=== PATIENT | male | born 1960 | race Caucasian/White ===

== ENCOUNTER → 2017-01-04 | Day surgery (SDC) | payer BC ==
[2016-12-24 13:32] VITALS: Ht 172.7 cm; Wt 68.2 kg
[~2017-01-04] VITALS: Ht 172.7 cm; Wt 68.2 kg
[~2017-01-04] MED LIST: ATROPINE SULFATE 0.1 MG/ML 5ML SYR IV PRN; BUPIVACAINE/EPINEPHRINE 0.5% MPF 1:200,000 30 ML VIAL ONE; CEFAZOLIN 2000 MG/60 ML D5W IV SCH; DEXAMETHASONE SOD INJ 4 MG/ML VIAL ONE; FENTANYL CITRATE INJ 50 MCG/1 ML 2 ML VIAL ONE; FERR325T5 PO; GLYCOPYRROLATE INJ 0.2 MG/ML VIAL ONE; HEPARIN SOD 5000 UNIT/0.5 ML CARP SQ SCH; HYDR-5688 PO; HYDROCODONE/ACETAMOPHEN 5/325MG TAB PO PRN; KETOROLAC TROMETHAMINE 30 MG/ML VIAL IV. PRN; LACTATED RINGER'S 1000ML 1,000 ML IV SCH; LIDOCAINE HCL 2% 2 ML VIAL (20MG/ML) ONE; MIDAZOLAM HCL 1 MG/ML 2ML VIAL ONE; MULTTAB58 PO; ONDANSETRON INJ 2 MG/ML 2 ML VIAL IV PRN; ONDANSETRON INJ 2 MG/ML 2 ML VIAL ONE; PROPOFOL IV EMULSION 10 MG/ML 20 ML VIAL IV ONE; SODIUM CHLORIDE 0.9% 1000ML 1,000 ML IV SCH
--- NOTE | 2017-01-04 06:57 | History & Physical Bridge Note ---
H&P Re-Evaluation Bridge Note: I have examined the patient, reviewed the History & Physical and in the interval since the performance of the History & Physical I have noted the following changes of clinical significance: No changes noted
--- NOTE | 2017-01-04 07:35 | Discharge Instructions-SurgCtr ---
Discharge Instructions Date of Service Jan 04, 2017. Visit Reason for Visit: Right Inguinal Hernia Discharge Discharge Diagnosis / Problem: right inguinal hernia Discharge Goals Goal(s): Decrease discomfort, Improve function Activity Recommendations Activity Limitations: as noted below Lifting Limitations: no more than 10 pounds Exercise/Sports Limitations: until after follow-up appointment May Resume Sexual Activity: after follow-up appointment Shower/Bathe: tomorrow Anesthesia . Post Anesthesia Instructions: If you have had General Anesthesia or IV Sedation: * Do not drive today. * Resume driving when surgeon permits. * Do not make important decisions or sign legal documents today. * Call surgeon for: 1. Temperature elevations greater than 101 degrees F. 2. Uncontrollable pain. 3. Excessive bleeding. 4. Persistent nausea and vomiting. 5. Medication intolerance (nausea, vomiting or rash). * For nausea and vomiting use only clear liquids such as: tea, soda, bouillon until nausea subsides, then gradually increase diet as tolerated. * If you have any concerns or questions, call your surgeon's office. If physician is unavailable and it is an emergency, call 911 or go to the nearest emergency room. . Instructions / Follow-Up Instructions / Follow-Up follow up in 1-2 weeks. call [phone] with any problems/questions. Diet Recommendations Home Diet: resume previous diet Procedures Procedures Performed: open right inguinal hernia repair with mesh Pending Studies Studies pending at discharge: no Medical Emergencies . Who to Call and When: Medical Emergencies: If at any time you feel your situation is an emergency, please call 911 immediately. . Non-Emergent Contact Non-Emergency issues call your: Primary Care Provider, Surgeon Call Non-Emergent contact if: temperature is above 101, wound has increased drainage, wound has increased redness, wound has increased pain . . "Provider Documentation" section prepared by Issa Gibson. .
--- NOTE | 2017-01-04 09:23 | [facility] Operative Report ---
Operative Report Operative Date Jan 04, 2017. Pre-Operative Diagnosis Right Inguinal Hernia Post-Operative Diagnosis right inguinal hernia;cord lipomas times 2 Procedure(s) Performed open right inguinal hernia repair with mesh; excision of cord lipomas X 2. Surgeon Dr. Gibson Outbound Call Center Representative Surgeon(s) JORDYN Del Valle/ Maynor River PA-C Estimated Blood Loss 10ML Findings large indirect hernia. cord lipomas X 2 Specimens NONE, PER SURGEON Anesthesia LMA Complication(s) None Disposition Recovery Room / PACU I attest to the content of the Intraoperative Record and any orders documented therein. Any exceptions are noted below.
--- NOTE | 2017-01-04 09:43 | OPERATIVE REPORT ---
DATE OF OPERATION: 01/04/2017 PREOPERATIVE DIAGNOSIS: Symptomatic right inguinal hernia. POSTOPERATIVE DIAGNOSIS: Same with cord lipomas x2. PROCEDURES: 1. Open right inguinal hernia repair with mesh. 2. Excision of cord lipomas x2. SURGEON: Dr. Gibson. GRAB DRIVER: Nishant Ward PA-C and Madeline River PA-C. ESTIMATED BLOOD LOSS: Approximately 10 mL. COMPLICATIONS: No immediate. ANESTHESIA: General laryngeal mask airway. OPERATION AND FINDINGS: OPERATIVE NOTE: After informed consent was obtained, the patient was taken to the operating suite, placed in supine position. After successful intubation, the right groin was shaved and sterilely prepped and draped in usual fashion. An inguinal incision was made with a 10 blade scalpel and carried down through the soft tissue using electrocautery. The external oblique aponeurosis was skeletonized and incised with a fresh scalpel. It was opened using Metzenbaum scissors, through the external ring as well as for several centimeters proximally. Immediately, we noted a bulge coming from the cord and cord structures. We were able to gently tease the cord structures off the pubic bone and place a Cook around them. We were then able to examine the cord contents. There were 2 lipomas both proximal on the cord. We dissected the lipomas back to the neck of the cord and then clamped with a hemostat and excised them and tied it off with 3-0 Vicryl ties. We then were able to identify the hernia sac. A small hole was made in it incidentally and we closed the hole using a 3-0 Vicryl. We then dunked the hernia sac back down into the abdominal cavity. Once we did this, there was no other abnormality. There was no evidence of a direct hernia. We thoroughly irrigated the wound. We used a piece of keyhole polypropylene mesh as an onlay. I secured it distally to Mahendra's ligament using an 0 Ethibond suture. I then secured it laterally along the shelving portion of Poupart's ligament and medially along the midline musculature. The "arms" of the mesh were wrapped around behind the cord and cord structures and secured to underlying muscle using 0 Ethibond as well. The mesh laid tension free and did not appear to be impinging on the cord. There was adequate hemostasis at the end of the case. We injected Marcaine around the periphery of the mesh for postoperative analgesia. There was adequate hemostasis, and final irrigation was performed. We then closed the external oblique aponeurosis with 2-0 Vicryl in a running fashion. Soft tissue was irrigated and closed using 3-0 Vicryl and skin was closed using 4-0 Monocryl. Some additional Marcaine was injected around the skin. A sterile dressing was applied. The patient was awakened, extubated, and transferred to recovery in stable condition. I attest to the content of the Intraoperative Record and any orders documented therein. Any exception s are noted below.
[2017-01-04] MEDS: FENTANYL CITRATE INJ 50 MCG/1 ML 2 ML VIAL IV PRN ×2 (09:52→10:00)
--- NOTE | 2017-01-04 10:18 | Anesthesia Progress Nt - [facility] ---
Anesthesia Post Op Note Date & Time Jan 04, 2017 at 10:18 Vital Signs Pain Intensity: 3 Vital Signs Past 12 Hours Date Time Temp Pulse Resp B/P (MAP) Pulse Ox O2 Delivery O2 Flow Rate FiO2 01/04/17 10:13 36.4 01/04/17 09:27 36.4 75 12 92/65 98 Diffusion Mask 6 01/04/17 07:05 36.5 68 16 111/74 (86) 96 Room Air Notes Mental Status: alert / awake / arousable, participated in evaluation Pt Amnestic to Procedure: Yes Nausea / Vomiting: adequately controlled Pain: adequately controlled Airway Patency, RR, SpO2: stable & adequate BP & HR: stable & adequate Hydration State: stable & adequate Anesthetic Complications: no major complications apparent
[2017-01-04 11:00] VITALS: BP 107/68; PULSE 40; O2SAT 100
== END | disposition home or self-care (01) ==
LOC: X.SURG 06:46
PROVIDERS: ATTEND Surgery
DX: K40.90 Unilateral inguinal hernia, without obstruction or gangrene, not specified as recurrent (principal); D17.6 Benign lipomatous neoplasm of spermatic cord